=== PATIENT | female | born 1960 | race Caucasian/White ===

== ENCOUNTER 2016-10-05 10:53 | Outpatient (CLI) | payer OTHER ==
[2016-10-05 18:59] LABS: BILIRUBIN,URINE NEGATIVE (NEGATIVE)
[2016-10-05 19:18] LABS: BASOPHILS # (AUTO) 0.1 10^3/uL (0.0-0.1); BASOPHILS % (AUTO) 0.8 %; EOSINOPHILS # (AUTO) 0.1 10^3/uL (0.0-0.7); EOSINOPHILS % (AUTO) 1.2 %; HCT - HEMATOCRIT 45.9 % (37.0-47.0); HEMOGLOBIN A1C 0.57 g/dL; HGB - HEMOGLOBIN 15.2 g/dL (12.0-16.0); LYMPHOCYTES # (AUTO) 2.4 10^3/uL (1.5-3.5); LYMPHOCYTES % (AUTO) 29.1 %; MEAN CORPUSCULAR HEMOGLOBIN 31.4 pg (27.0-31.0); MEAN CORPUSCULAR HGB CONC 33.2 g/dL (32.0-36.0); MEAN CORPUSCULAR VOLUME 94.7 fL (81.0-99.0); MEAN PLATELET VOLUME 9.7 fL (7.9-10.8); MONOCYTES # (AUTO) 0.6 10^3/uL (0.0-1.0); MONOCYTES % (AUTO) 7.1 %; NEUTROPHILS # (AUTO) 5.1 10^3/uL (1.5-6.6); NEUTROPHILS % (AUTO) 61.8 %; NUCLEATED RED BLOOD CELLS AUTO 0.1 /100WBC; RED BLOOD COUNT 4.85 10^6/uL (4.20-5.40); RED CELL DISTRIBUTION WIDTH 12.9 % (12.0-15.0); UNCORRECTED WHITE BLOOD COUNT 8.2 x10^3/uL; WHITE BLOOD COUNT 8.2 x10^3/uL (4.8-10.8)
[2016-10-05 19:31] LABS: UR CULTURE IF IND NOT INDICATED; WBC,URINE 0-3 /HPF (0-5)
[2016-10-05 19:50] LABS: ALBUMIN/GLOBULIN RATIO 1.5 (1.0-2.2); BILIRUBIN,TOTAL 0.8 mg/dL (0.2-1.0); BUN - BLOOD UREA NITROGEN 13 mg/dL (6-20); CALCIUM 9.3 mg/dL (8.5-10.3); CARBON DIOXIDE - CO2 26 mmol/L (21-32); CHLORIDE 105 mmol/L (101-111); CHOL/HDL RATIO 3.6 (<4.4); CHOLESTEROL 177 mg/dL; CREATININE 0.7 mg/dL (0.4-1.0); GFR - MDRD 86 (>89); GLUCOSE 83 mg/dL (70-100); HDL CHOLESTEROL 49 mg/dL; LDL/HDL RATIO 1.9 (<4.4); POTASSIUM 4.1 mmol/L (3.5-5.0); SODIUM 142 mmol/L (135-145); TOTAL PROTEIN 7.6 g/dL (6.7-8.2); TRIGLYCERIDES 171 mg/dL; VLDL CHOLESTEROL 34 mg/dL
== END 2016-10-05 10:54 | disposition home or self-care (01) ==
LOC: LAB.WCP 10:53
PROVIDERS: ATTEND Family Medicine
DX: Z00.00 Encounter for general adult medical examination without abnormal findings (principal); R35.0 Frequency of micturition
CPT/HCPCS: 36415; 80053; 80061; 81001; 83036; 84443; 85025; 87086

== ENCOUNTER 2019-01-14 10:48 | Outpatient (CLI) | payer OTHER | END 2019-01-14 10:49 | disposition home or self-care (01) | LOC: SC 10:48 | PROVIDERS: ATTEND Internal Medicine Pulmonary Disease | DX: G47.10 Hypersomnia, unspecified (principal); R51 Headache; R41.89 Other symptoms and signs involving cognitive functions and awareness; G47.8 Other sleep disorders; R06.81 Apnea, not elsewhere classified; R06.83 Snoring | CPT/HCPCS: 99203; 99212 ==

== ENCOUNTER → 2019-01-25 | Outpatient (CLI) | payer OTHER | LOC: SC 18:00 | PROVIDERS: ATTEND Internal Medicine Pulmonary Disease | DX: G47.33 Obstructive sleep apnea (adult) (pediatric) (principal) | CPT/HCPCS: 95806 ==

== ENCOUNTER 2019-02-11 08:42 | Outpatient (CLI) | payer OTHER | END 2019-02-11 08:43 | disposition home or self-care (01) | LOC: SC 08:42 | PROVIDERS: ATTEND Internal Medicine Pulmonary Disease | DX: G47.33 Obstructive sleep apnea (adult) (pediatric) (principal) | CPT/HCPCS: 99212; 99213 ==

== ENCOUNTER 2019-04-09 14:38 | Outpatient (CLI) | payer OTHER ==
[2019-04-09 16:11] VITALS: BP 116/80
--- NOTE | 2019-04-09 16:11 | SLEEP CARE CONSULTATION ---
Information from patient questionnaire entered by Anna Todd. I have reviewed and concur with the information entered by Anna Todd. This document represents the service I personally performed and the decisions made by me, Velma Navarro, RN, MSN, LEARNING AND DEVELOPMENT DIRECTOR. History of Present Illness Previous diagnosis: Moderate, Obstructive Sleep Apnea-Hypopnea Syndrome AHI: 15.6 Reason for CPAP/BiPAP follow up: first compliance Equipment type: CPAP Equipment obtained from: [employer] Mask style: Nasal (Dreamwear nasal mask.) Mask brand: Respironics Backup mask available: Yes Last cushion change: not changed since set up CPAP Compliance Data - Data Reviewed with Patient Average duration of nightly device use: 5.95 Compliance rate %: 73.3 Current pressure setting (cmH2O): 4-12 Humidity settin Heated hose settin Average residual AHI: 2.4 Average large leak: 48 secs Subjective Patient concerns: reports: mask discomfort (from headgear - patient states her head is sensitive to touch overall), air blowing in eyes, dry mouth, nose, throat, other (has tried several mask styles and current mask body seem style seems too large. She considering not using CPAP as use of mask appears to be disruptive to sleep and increasing her headache frequency. ). denies: aerophagia, mask leak noise, condensation in mask/hose, nasal congestion (dry nose ), epistaxis Observed to snore while using device: No On therapy, patient: reports: being more awake and alert during the day, more rested overall (slightly more rested). denies: sleeping better, awakening more refreshed, drowsiness while driving Initial [place] Sleepiness Scale score: 8 Current [place] Sleepiness Scale score: 3 Allergies and Home Medications Known drug allergies: Yes (naproxin ( aleve) , imitrex) Home medication list reviewed: Yes Allergy and home medication list: Medication List Medication Name (generic/name brand) Strength & Dosage Lisinopril 20mg tab one daily Simvastatin 40mg tab one daily at bedtime Hydroxyzine HCL 25mg cap one q6hr as needed Clonazepam 0.5mg tab one - three times daily Qxmcrfcaxk-Wvcqmziachbrt-Rxta Tab one two q4hr as needed Meclizine 12.5mg tab one 2-3 times daily as needed Meloxicam 15mg tab one daily Ranitidine 150mg tab one twice daily Cholecalciferol (Vitamin D3) 2000IU cap one daily Multivitamin Tab one daily Metamucil 1.7gm as needed Allergy List Naproxen Sumatriptan Prozac Zoloft Vijay L-theanine Physical Exam Blood Pressure: 116/80 Cuff size: regular Heart Rate: 87 O2 Saturation: 98 Height: 5 ft 2 in Weight (kg): 72.938 kg Body Mass Index: 29.4 BMI Classification: Overweight Impression and Plan 1. Obstructive Sleep Apnea-Hypopnea Syndrome,moderate, with good treatment compliance and good apnea control. On CPAP therapy, the patient has is more awake and alert and slightly more rested overall. Patient reports that she is struggling using CPAP through the night due to mask discomfort from headgear and feels the current body of mask is too large and dislodges. She feels this is the best mask she has tried of several styles both nasal and full face. It appears her head is sensitive to touch so I showed her other sample mask styles I had but she had tried those. I also showed her some cloth barriers that can be bought from [employer] pamphlet or she can make from old soft socks to assist comfort of mask. To prevent mask feeling like it is being pulled when she moves in her sleep, she can use a hose hassan as shown. In addition, to allow her to sleep on her side with less mask movement, I showed her a CPAP pillow that can be bought online for about $60 or other styles. I also advised her to change her nasal mask cushions to improve fit as have started leaking. She called but told would not come for 6 weeks with other supplies. I will order at least a month of nasal pillows be sent to see if will expedite process. For her nasal dryness, I reviewed rationale for changing the settings of heated hose and humidity. I advised her to increase the humidity and to decrease the heat of hose and adjust as needed for comfort. Since she also expresses feeling air hunger at initiation of therapy, I will change her autoCPAP pressure to mean and 90% average of 6-8cmH20. She can still use ramp feature as needed. I also advised her to contact me if pressure change u ncomfortable. She is considering quitting using CPAP. She has looked into oral appliance and was discouraged from pursuing due to online comments of possible complications of use. I reviewed usual jaw pain, jaw and tooth misalignment that can occur with some but I have patients who use without problem well. Since she has hypertension, CPAP is the gold standard of use. I again reviewed her apnea severity and associated moderate hypoxia on hypnogram of her home sleep study. I explained rationale for treatment to reduce apnea, improve sleep quality and reduce cardiovascular and cerebrovascular events. I also reviewed the benefit of consistent device use of CPAP for hypertension, anxiety, migraines. After above discussion, patient voiced appreciation of measures suggested and will try to use CPAP to see if more comfortable with above measures. She also wondered how weight loss could reduce apnea. She plans on losing more weight and I explained how her pressure will be reduced with significant weight loss. I explained everyone is different. But another home study could be completed when she got to goal weight loss and also if compliance shows good apnea control with lowest pressure used to see if treatment for apnea still indicated. * Change CPAP pressure to 6-8 cmH2O * Consider cloth barrier * Consider CPAP pillow * consider hose hassan * Update mask cushions * Try to use CPAP with all sleep for maximum benefit. * Notify me if snoring with mask or feeling that the pressure is too much or too little * Attempt to lose weight * Return for follow up in 2 months, or sooner if concerns arise I spent 100% of this 45 minute visit face to face with the patient with greater than 50% of this was spent time counseling the patient and coordination of care.
== END 2019-04-09 14:39 | disposition home or self-care (01) ==
LOC: SC 14:38
PROVIDERS: ATTEND Nurse Practitioner Family
DX: G47.33 Obstructive sleep apnea (adult) (pediatric) (principal)
CPT/HCPCS: 99212; 99215

== ENCOUNTER 2021-06-08 10:41 | Outpatient (CLI) | payer OTHER ==
--- NOTE | 2021-06-09 10:03 | Mammography Report ---
BILATERAL DIGITAL SCREENING MAMMOGRAM 3D/2D: 06/08/2021 CLINICAL: Routine screening. Comparison is made to exams dated: 07/02/2019 mammogram, 06/25/2017 mammogram, 06/19/2017 mammogram, 06/15/2015 mammogram - [facility], 06/02/2015 mammogram, and 05/08/2014 mammogram - [facility]. There are scattered fibroglandular elements in both breasts. No significant masses, calcifications, or other findings are seen in either breast. There has been no significant interval change. IMPRESSION: NEGATIVE There is no mammographic evidence of malignancy. A 1 year screening mammogram is recommended. This exam was interpreted at Station ID: [id number]. NOTE: For mammograms, a report in lay terms will be sent to the patient. Approximately 15% of breast malignancies will not be visualized mammographically. In the management of a palpable breast mass, a negative mammogram must not discourage biopsy of a clinically suspicious lesion. Electronically Signed By: Keyur [email or web address]:06/09/2021 09:48:44 ACR BI-RADS Category 1: Negative 3341F PARENCHYMAL PATTERN: (A) - The breast(s) demonstrate(s) scattered fibroglandular densities. BI-RADS CATEGORY: (1) - 1 RECOMMENDATION: (ANNUAL) - Recommend routine annual screening mammography. [id number] 1 year screening LATERALITY: (B)
== END 2021-06-08 10:42 | disposition home or self-care (01) ==
LOC: DI.N 10:41
DX: Z12.31 Encounter for screening mammogram for malignant neoplasm of breast (principal)

== ENCOUNTER 2023-08-13 11:08 | Outpatient (CLI) | payer MEDICARE ==
--- NOTE | 2023-08-14 08:48 | Mammography Report ---
BILATERAL DIGITAL SCREENING MAMMOGRAM 3D/2D: 08/13/2023 CLINICAL: Routine screening. Comparison is made to exams dated: 06/08/2021 mammogram - [facility], 07/02/2019 ma mmogram, 06/25/2017 mammogram, 06/19/2017 mammogram, 06/15/2015 mammogram - [facility], and 015 mammogram - [facility]. There are scattered areas of fibroglandular density in both breasts (category b / 25%-50% glandular t issue). No significant masses, calcifications, or other findings are seen in either breast. There has been no significant interval change. IMPRESSION: NEGATIVE There is no mammographic evidence of malignancy. A 1 year screening mammogram is recommended. Based on the Tyrer Cuzick model (a risk assessment model) the patients lifetime risk is 6.7% and her 10 year risk is 3.2%. According to the ACR, ACS, and NCCN guidelines, an annual breast MRI exam ese g with mammogram is recommended if the patients lifetime risk is 20% or greater. This exam was interpreted at Station ID: [id number]. NOTE: For mammograms, a report in lay terms will be sent to the patient. Approximately 15% of breast malignancies will not be visualized mammographically. In the management of a palpable breast mass, a negative mammogram must not discourage biopsy of a clinically suspicious lesion. Electronically Signed By: Jessica Esposito M.D., PH.D eb/[email or web address]:08/13/2023 21:41:39 letter sent: No_Letter ACR BI-RADS Category 1: Negative 3341F PARENCHYMAL PATTERN: (A) - The breast(s) demonstrate(s) scattered fibroglandular densities. BI-RADS CATEGORY: (1) - 1 Mammogram [id number] 1 year screening LATERALITY: (B)
== END 2023-08-13 11:09 | disposition home or self-care (01) ==
LOC: DI.N 11:08
DX: Z12.31 Encounter for screening mammogram for malignant neoplasm of breast (principal); R92.323 Mammographic fibroglandular density, bilateral breasts

== ENCOUNTER 2023-11-08 09:29 | Outpatient (CLI) | payer MEDICARE ==
[2023-11-08 11:57] LABS: BASOPHILS # (AUTO) 0.1 10^3/uL (0.0-0.1); BASOPHILS % (AUTO) 0.7 %; EOSINOPHILS # (AUTO) 0.1 10^3/uL (0.0-0.7); EOSINOPHILS % (AUTO) 1.5 %; HCT - HEMATOCRIT 48.5 % (37.0-47.0); HGB - HEMOGLOBIN 15.5 g/dL (12.0-16.0); LYMPHOCYTES # (AUTO) 2.7 10^3/uL (1.5-3.5); LYMPHOCYTES % (AUTO) 31.1 %; MEAN CORPUSCULAR HEMOGLOBIN 30.1 pg (27.0-31.0); MEAN CORPUSCULAR VOLUME 94.2 fL (81.0-99.0); MEAN PLATELET VOLUME 10.3 fL (7.9-10.8); MONOCYTES # (AUTO) 0.6 10^3/uL (0.0-1.0); MONOCYTES % (AUTO) 7.4 %; NEUTROPHILS # (AUTO) 5.1 10^3/uL (1.5-6.6); NEUTROPHILS % (AUTO) 59.1 %; PLT - PLATELET COUNT 235 10^3/uL (130-450); RED BLOOD COUNT 5.15 10^6/uL (4.20-5.40); RED CELL DISTRIBUTION WIDTH 12.9 % (12.0-15.0); WHITE BLOOD COUNT 8.7 x10^3/uL (4.8-10.8)
[2023-11-08 12:28] LABS: ALBUMIN 4.2 g/dL (3.2-5.5); ALBUMIN/GLOBULIN RATIO 1.4 (1.0-2.2); ALKALINE PHOSPHATASE 58 IU/L (42-121); ALT ALANINE AMINOTRANSFERASE 11 IU/L (10-60); AST ASPARTATE AMINOTRANSFERASE 14 IU/L (10-42); BILIRUBIN,TOTAL 0.6 mg/dL (0.2-1.0); BUN - BLOOD UREA NITROGEN 11 mg/dL (6-20); CALCIUM 9.4 mg/dL (8.5-10.3); CARBON DIOXIDE - CO2 34 mmol/L (21-32); CHLORIDE 103 mmol/L (101-111); CHOLESTEROL 203 mg/dL; CREATININE 0.7 mg/dL (0.6-1.3); GFR - MDRD 84 (>89); GLUCOSE 90 mg/dL (74-104); HDL CHOLESTEROL 41 mg/dL; LDL CHOLESTEROL,CALCULATED 117 mg/dL; LDL/HDL RATIO 2.9 (<4.4); POTASSIUM 3.9 mmol/L (3.5-4.5); SODIUM 142 mmol/L (135-145); TOTAL PROTEIN 7.2 g/dL (6.4-8.9); TRIGLYCERIDES 227 mg/dL (48-352); VLDL CHOLESTEROL 45 mg/dL
[2023-11-08 12:32] LABS: THYROID STIMULATING HORMONE 1.56 uIU/mL (0.34-5.60)
[2023-11-08 12:36] LABS: CREATININE,URINE 130.5 mg/dL; MICROALBUM/CREATININE RATIO,UR 195.4 ug/mg (<30.0); MICROALBUMIN,URINE 25.5 mg/dL
== END 2023-11-08 09:30 | disposition home or self-care (01) ==
LOC: LAB.N 09:29
PROVIDERS: ATTEND Family Medicine
DX: I10 Essential (primary) hypertension (principal); F41.1 Generalized anxiety disorder; F41.0 Panic disorder [episodic paroxysmal anxiety]; E78.5 Hyperlipidemia, unspecified; D64.9 Anemia, unspecified; E03.9 Hypothyroidism, unspecified
CPT/HCPCS: 36415; 80053; 80061; 82043; 82570; 83721; 84443; 85025

== ENCOUNTER 2024-01-11 09:15 | Outpatient (CLI) | payer MEDICARE ==
--- NOTE | 2024-01-11 11:07 | XRAY Report ---
Elbow 3+V RT HISTORY: 63 years of age, ELBOW JOINT PAIN, RIGHT TECHNIQUE: Elbow 3+V RT COMPARISON: None. FINDINGS/IMPRESSION: No elbow effusion. Ossification about the lateral epicondyle comparison prior injury. Small enthesoph yte of the medial epicondyles. No acute fracture or dislocation. Joint spaces are well maintained. Reviewed by: Karie Metcalf MD on 01/11/2024 11:06 AM PDT Approved by: Karie Metcalf MD on 01/11/2024 11:06 AM PDT Station ID: [id number]
--- NOTE | 2024-01-11 11:14 | XRAY Report ---
Ribs w/PA Chest 3+V RT HISTORY: 63 years of age, RIB PAIN, RIGHT SIDED TECHNIQUE: Ribs w/PA Chest 3+V RT COMPARISON: None. FINDINGS/IMPRESSION: No pleural effusion, pneumothorax, pulmonary edema, or focal consolidation. Normal cardiomediastinal silhouette. Cortical irregularity of the right lateral fourth rib, concerning for nondisplaced right rib fracture . Reviewed by: Karie Metcalf MD on 01/11/2024 11:12 AM PDT Approved by: Karie Metcalf MD on 01/11/2024 11:12 AM PDT Station ID: [id number]
--- NOTE | 2024-01-11 11:18 | XRAY Report ---
Shoulder 2+V RT HISTORY: 63 years of age, SHOULDER JOINT PAIN, RIGHT TECHNIQUE: Shoulder 2+V RT COMPARISON: None. FINDINGS/IMPRESSION: Mild degenerative changes of the acromioclavicular joint. Joint space of the glenohumeral joint is we ll maintained. No acute fracture or dislocation. Reviewed by: Karie Metcalf MD on 01/11/2024 11:17 AM PDT Approved by: Karie Metcalf MD on 01/11/2024 11:17 AM PDT Station ID: [id number]
== END 2024-01-11 09:30 | disposition home or self-care (01) ==
LOC: DI.N 09:15
PROVIDERS: ATTEND Physician Assistant Medical
DX: M19.011 Primary osteoarthritis, right shoulder (principal); R93.7 Abnormal findings on diagnostic imaging of other parts of musculoskeletal system; M77.8 Other enthesopathies, not elsewhere classified